=== PATIENT | female | born 1980 | race Caucasian/White ===

== ENCOUNTER → 2018-12-19 | Outpatient (CLI) | payer BC ==
--- NOTE | 2018-12-22 08:03 | MM ---
Reason for exam: screening (asymptomatic). Baseline mammogram. History: Family history of breast cancer in maternal aunt at age 50. Physical Findings: Nurse did not find any significant physical abnormalities on exam. MG Screening Mammo w CAD Bilateral CC and MLO view(s) were taken. The breast tissue is heterogeneously dense. This may lower the sensitivity of mammography. Focal asymmetry of the left upper outer quadrant at middle depth. Ultrasound will be performed. These results were verbally communicated with the patient and result sheet given to the patient on 12/19/18. ASSESSMENT: Incomplete: need additional imaging evaluation, BI-RAD 0 RECOMMENDATION: Ultrasound of the left breast. (upper outer quadrant)
--- NOTE | 2018-12-22 08:08 | USB ---
Reason for exam: additional evaluation requested from abnormal screening. History: Family history of breast cancer in maternal aunt at age 50. Physical Findings: Breast exam preformed at baseline screening. US Breast Workup Limited LT Left limited breast ultrasound including focal area of concern, retroareolar and axilla demonstrates a 0.7 x 0.4 x 0.7cm hypoechoic lesion at 1 o'clock low suspicious however biopsy is recommended, solid nature, a 0.6 x 0.3 x 0.6cm cystic, benign lesion at 2 o'clock, a 0.8 x 0.5 x 0.7cm solid, possible lymph node at 2 o'clock, a 2.1 x 1.2 x 2.2cm hypoechoic, vascular lesion at 3 o'clock suspicious, biopsy is recommended, a 0.4 x 0.3 x 0.3cm lesion too small to characterize at 3 o'clock, possibly solid satellite noted 1.6mm adjacent to index mass and duct ectasia at the posterior nipple. These results were verbally communicated with the patient and result sheet given to the patient on 12/19/18. ASSESSMENT: Suspicious, BI-RAD 4 RECOMMENDATION: Ultrasound core biopsy of the left breast. (x2) Called Dr. Ames with mammographic findings and has scheduled an appointment for the patient for 01/22/19 at 10:[address] Michael. Biopsy scheduled for 12/24/18 at 8:00. PRELIMINARY REPORT CALLED AND FAXED TO DR. MICHAEL ON 12/19/18.
== END ==
LOC: RADMAMWWP 14:03
PROVIDERS: ATTEND Family Medicine
DX: Z12.31 Encounter for screening mammogram for malignant neoplasm of breast (principal); R92.8 Other abnormal and inconclusive findings on diagnostic imaging of breast
CPT/HCPCS: 77067

== ENCOUNTER → 2018-12-24 | Day surgery (SDC) | payer BC ==
[2018-12-24 07:16] VITALS: RESP 16; BMI 27.4
[2018-12-24 09:06] VITALS: BP 128/86; PULSE 80; TEMP 98.3
--- NOTE | 2018-12-24 09:06 | USB ---
EXAMINATION TYPE: US biopsy breast VAD LT, US biopsy breast add'l VAD LT, MG diagnostic mammo LT wo C AD DATE OF EXAM: 12/24/2018 CLINICAL HISTORY: R92.8 PREV ABN MAMMO. TECHNIQUE: Ultrasound guided core biopsy of left breast at 2 sites 3:00 and 1:00. COMPARISON: NONE FINDINGS: The procedure of ultrasound guided core biopsy was explained to the patient. Benefits, alt ernatives, and risks were discussed. An informed consent was then obtained. The patient was placed in supine positioning for imaging and for the procedure. The overlying skin w as prepped and draped in usual sterile fashion. Lidocaine buffered with bicarbonate was used as anes thetic into the skin and subcutaneous tissue up to area of concern in the left breast at 2 sites 3:00 and 1:00. Under ultrasound guidance, a 12-gauge vacuum assisted biopsy gun device was used to obtain 4 core [address]es at 3:00 lesion and 3 cores were obtained at the 1:00. Following this, a biopsy clip was left in the lesion. The patient tolerated the procedure well without any immediate complication. The patient was kept in the radiology department for short stay after the procedure and then discharged home in stable condi tion. IMPRESSION: Successful, uncomplicated ultrasound guided core biopsy of areas of concern in the left b reast, full pathology results to follow.
== END | disposition home or self-care (01) ==
LOC: RADUSWWP 06:56
PROVIDERS: ATTEND Surgery
DX: D24.2 Benign neoplasm of left breast (principal); N60.22 Fibroadenosis of left breast; Z91.09 Other allergy status, other than to drugs and biological substances
CPT/HCPCS: 19084; 77065; 88305

== ENCOUNTER → 2019-06-23 | Outpatient (CLI) | payer BC ==
--- NOTE | 2019-06-23 10:55 | USB ---
Reason for exam: follow-up at short interval from prior study. History: Family history of breast cancer in maternal aunt at age 50. Benign US biopsy breast VAD LT of the left breast, December 24, 2018. Benign US biopsy breast add'l VAD LT of the left breast, December 24, 2018. Physical Findings: Nurse did not find any significant physical abnormalities on exam. US Breast Limited LT Left limited breast ultrasound including focal area of concern, retroareolar and axilla demonstrates a 0.9 x 0.3 x 0.5cm oval, cystic lesion at 2 o'clock, benign, a 2.0 x 0.9 x 2.2cm oval, solid lesion at 3 o'clock, clip seen, prior biopsied mass measured 2.1 x 1.1 x 2.2cm on the prior and a 0.6 x 0.4 x 0.5cm oval, cystic lesion at 3 o'clock, benign. Prior probable lymph node no longer seen. One o'clock former biopsy site not seen. Only upper outer quadrant scanned per radiologist. These results were verbally communicated with the patient and result sheet given to the patient on 06/23/19. ASSESSMENT: Benign, BI-RAD 2 RECOMMENDATION: Return to routine screening mammogram schedule for both breasts. Back on schedule for December 2019.
== END | disposition home or self-care (01) ==
LOC: RADUSWWP 09:24
PROVIDERS: ATTEND Surgery
DX: R92.8 Other abnormal and inconclusive findings on diagnostic imaging of breast (principal)

== ENCOUNTER → 2020-01-26 | Outpatient (CLI) | payer BC ==
--- NOTE | 2020-01-26 11:22 | MM ---
Reason for exam: screening (asymptomatic). Last mammogram was performed 1 year and 1 month ago. History: Family history of breast cancer in maternal aunt at age 50. Benign US biopsy breast VAD LT of the left breast, December 24, 2018. Benign US biopsy breast add'l VAD LT of the left breast, December 24, 2018. Physical Findings: A clinical breast exam by your physician is recommended on an annual basis and results should be correlated with mammographic findings. MG 3D Screening Mammo W/Cad Bilateral CC and MLO view(s) were taken. Prior study comparison: December 24, 2018, left breast MG diagnostic mammo LT wo CAD. December 19, 2018, bilateral MG screening mammo w CAD. The breast tissue is heterogeneously dense. This may lower the sensitivity of mammography. Previous mammotome biopsy in the leftbreast x 2. There is no discrete abnormality. ASSESSMENT: Benign, BI-RAD 2 RECOMMENDATION: Routine screening mammogram of both breasts in 1 year.
== END | disposition home or self-care (01) ==
LOC: RADMAMWWP 07:20
PROVIDERS: ATTEND Family Medicine
DX: Z12.31 Encounter for screening mammogram for malignant neoplasm of breast (principal)
CPT/HCPCS: 77063; 77067

== ENCOUNTER → 2020-12-02 | Outpatient (CLI) | payer OTHER | END | disposition home or self-care (01) | LOC: LABWHC1 15:34 | PROVIDERS: ATTEND Family Medicine | DX: Z20.822 Contact with and (suspected) exposure to COVID-19 (principal) | CPT/HCPCS: U0003; C9803; U0005 ==

== ENCOUNTER → 2021-03-03 | Outpatient (CLI) | payer OTHER, BC ==
--- NOTE | 2021-03-06 10:57 | MM ---
Reason for exam: screening (asymptomatic). Last mammogram was performed 1 year and 1 month ago. History: Family history of breast cancer in maternal aunt at age 50. Benign US biopsy breast VAD LT of the left breast, December 24, 2018. Benign US biopsy breast add'l VAD LT of the left breast, December 24, 2018. Physical Findings: A clinical breast exam by your physician is recommended on an annual basis and results should be correlated with mammographic findings. MG 3D Screening Mammo W/Cad Bilateral CC and MLO view(s) were taken. Prior study comparison: January 26, 2020, bilateral MG 3d screening mammo w/cad. December 24, 2018, left breast MG diagnostic mammo LT wo CAD. The breast tissue is heterogeneously dense. This may lower the sensitivity of mammography. Finding: There is a 16 mm circumscribed oval, distinct from clip mass located 8-9 cm from the nipple in the upper outer quadrant, middle position of the left breast. Previous mammotome biopsy in the left breast x 2. There is a chronic nodularity in the left breast. New finding and increase in size since January 26, 2020 and December 24, 2018. ASSESSMENT: Incomplete: need additional imaging evaluation, BI-RAD 0 RECOMMENDATION: Ultrasound of the left breast. [facility] will attempt to contact patient to return for ultrasound.
== END | disposition home or self-care (01) ==
LOC: RADMAMWWP 08:09
PROVIDERS: ATTEND Family Medicine
DX: Z12.31 Encounter for screening mammogram for malignant neoplasm of breast (principal); Z80.3 Family history of malignant neoplasm of breast
CPT/HCPCS: 77063; 77067

== ENCOUNTER → 2021-03-07 | Outpatient (CLI) | payer OTHER, BC ==
--- NOTE | 2021-03-07 11:44 | USB ---
Reason for exam: additional evaluation requested from abnormal screening. History: Family history of breast cancer in maternal aunt at age 50. Benign US biopsy breast VAD LT of the left breast, December 24, 2018. Benign US biopsy breast add'l VAD LT of the left breast, December 24, 2018. Physical Findings: Nurse did not find any significant physical abnormalities on exam. US Breast Workup Limited LT Left limited breast ultrasound including focal area of concern, retroareolar and axilla demonstrates a 0.6 x 0.4 x 0.8cm oval, hypoechoic lesion at 1 o'clock, stable with prior biopsy clip, a 0.9 x 0.3 x 0.7cm cystic lesion at 2 o'clock, stable, thin walled, benign cysts, a 0.6 x 0.4 x 0.6cm cystic lesion at 2 o'clock, stable, thin walled, benign cysts, a 1.1 x 1.2 x 1.3cm hypoechoic lesion at 2 o'clock, increased in size from 2019, corresponds to mammogram and a 1.8 x 0.9 x 1.8cm hypoechoic lesion at 3 o'clock, benign, biopsied in the past. These results were verbally communicated with the patient and result sheet given to the patient on 03/07/21. ASSESSMENT: Suspicious, BI-RAD 4 RECOMMENDATION: Ultrasound core biopsy of the left breast. Called Dr. Ames's office with mammographic findings and has scheduled an appointment for the patient for 04/20/21 at 11:[address] Michael. Biopsy scheduled for 03/13/21 at 12:00. PRELIMINARY REPORT CALLED AND FAXED TO DR. MICHAEL ON 03/07/21.
== END | disposition home or self-care (01) ==
LOC: RADUSWWP 10:15
PROVIDERS: ATTEND Family Medicine
DX: N60.02 Solitary cyst of left breast (principal); Z80.3 Family history of malignant neoplasm of breast

== ENCOUNTER → 2021-03-13 | Day surgery (SDC) | payer OTHER, BC ==
[2021-03-13 12:14] VITALS: RESP 16
[2021-03-13 13:15] VITALS: BP 148/94; PULSE 90; TEMP 98.5
--- NOTE | 2021-03-13 14:19 | USB ---
EXAMINATION TYPE: US biopsy breast VAD LT DATE OF EXAM: 03/13/2021 CLINICAL HISTORY: R92.8 abnormal mammogram. Request for biopsy 2:00 lesion left breast TECHNIQUE: Ultrasound guided core biopsy of left breast. COMPARISON: NONE FINDINGS: The procedure of ultrasound guided core biopsy was explained to the patient. Benefits, alternatives, and risks were discussed. An informed consent was then obtained. The patient was placed in supine positioning for imaging and for the procedure. The overlying skin was prepped and draped in usual sterile fashion. Lidocaine buffered with bicarbonate was used as anesthetic into the skin and subcutaneous tissue up to area of concern in the left breast. A rosalia was made with surgical scalpel. Under ultrasound guidance, a 12-gauge vacuum assisted biopsy gun device was used to obtain 5 core samples. Following this, a biopsy clip was left in lesion. Postprocedural mammogram demonstrated the clip to be in ideal position. The patient tolerated the procedure well without any immediate complication. The patient was kept in the radiology department for short stay after the procedure and then discharged home in stable condition. IMPRESSION: Successful, uncomplicated ultrasound guided core biopsy of area of concern in the left breast, full pathology results to follow. Pathology Results: Benign LEFT BREAST, 2:00 POSITION, CORE BIOPSY: Benign fibroadenoma (see note). Recommendation Follow up ultrasound of the left breast in 6 months. JOSE
--- NOTE | 2021-03-14 08:21 | MM ---
Reason for exam: additional evaluation requested from abnormal screening. Last mammogram was performed less than 1 month ago. History: Family history of breast cancer in maternal aunt at age 50. Benign US biopsy breast VAD LT of the left breast, December 24, 2018. Benign US biopsy breast add'l VAD LT of the left breast, December 24, 2018. MG Diagnostic Mammo LT Wo CAD CC and LM view(s) were taken of the left breast. Prior study comparison: March 03, 2021, bilateral MG 3d screening mammo w/cad. January 26, 2020, bilateral MG 3d screening mammo w/cad. ASSESSMENT: Post procedure mammogram for marker placement RECOMMENDATION: Ultrasound of the left breast in 6 months. PENDING PATHOLOGY RESULTS.
== END ==
LOC: RADUSWWP 11:51 → EDSTATUS 13:00
PROVIDERS: ATTEND Surgery
DX: D24.2 Benign neoplasm of left breast (principal)
CPT/HCPCS: 88305; 77065; 19083; A4648; J2001

== ENCOUNTER → 2021-09-15 | Outpatient (CLI) | payer BC ==
--- NOTE | 2021-09-15 12:06 | USB ---
Reason for exam: follow-up at short interval from prior study. History: Family history of breast cancer in maternal aunt at age 50. Benign US biopsy breast VAD LT of the left breast, March 13, 2021. Benign US biopsy breast VAD LT of the left breast, December 24, 2018. Benign US biopsy breast add'l VAD LT of the left breast, December 24, 2018. Physical Findings: Nurse did not find any significant physical abnormalities on exam. US Breast Limited LT Left limited breast ultrasound including focal area of concern, retroareolar and axilla demonstrates a 0.4 x 0.4 x 0.3cm oval, cystic lesion at 12 o'clock, a 0.6 x 0.6 x 0.4cm oval, complex, cystic lesion at 1 o'clock, a 1.0 x 0.5 x 0.4cm oval, cystic lesion at 2 o'clock, a 0.7 x 0.5 x 0.3cm oval, cystic lesion at 2 o'clock, a 1.7 x 1.7 x 1.5cm irregular, solid, vascular lesion at 2 o'clock, a 1.5 x 1.6 x 0.8cm irregular, solid, vascular lesion at 3o'clock, ductal ectasia at the posterior nipple and a 1.3 x 1.9 x 0.7cm axillary node. These results were verbally communicated with the patient and result sheet given to the patient on 09/15/21. ASSESSMENT: Probably benign, BI-RAD 3 RECOMMENDATION: Follow-up diagnostic mammogram of both breasts in 6 months. Back on schedule for February 2022.
== END | disposition home or self-care (01) ==
LOC: RADUSWWP 09:42
PROVIDERS: ATTEND Surgery
DX: N60.02 Solitary cyst of left breast (principal); Z80.3 Family history of malignant neoplasm of breast; N60.42 Mammary duct ectasia of left breast

== ENCOUNTER 2021-10-11 13:49 | Emergency (ER) | payer BC ==
--- NOTE | 2021-10-11 14:26 | ED ---
Chest Pain HPI - General Chief Complaint: Chest Pain Stated Complaint: Chest Pain Time Seen by Provider: 10/11/21 14:09 Source: family Mode of arrival: ambulatory Limitations: no limitations - Related Data Home Medications Medication Instructions Recorded Confirmed ALPRAZolam [Xanax] 0.5 mg PO DAILY PRN 10/11/21 10/11/21 Losartan Potassium 100 mg PO DAILY 10/11/21 10/11/21 Multivitamins, Thera [Multivitamin 1 tab PO DAILY 10/11/21 10/11/21 (formulary)] Sertraline [Zoloft] 50 mg PO DAILY 10/11/21 10/11/21 Allergies Allergy/AdvReac Type Severity Reaction Status Date / Time steri strips AdvReac Rash/Hives Uncoded 10/11/21 15:20 Review of Systems ROS Statement: Those systems with pertinent positive or pertinent negative responses have been documented in the HPI. ROS Other: All systems not noted in ROS Statement are negative. EKG Findings - EKG Comments: EKG Findings:: Twelve-lead EKG shows ventricular rate 97 bpm, normal NE interval and QRS complexes, no ST elevation or depression, interpreted by me as normal sinus rhythm. Past Medical History Past Medical History: No Reported History History of Any Multi-Drug Resistant Organisms: None Reported Past Surgical History: Cholecystectomy Additional Past Surgical History / Comment(s): Karen haji Past Anesthesia/Blood Transfusion Reactions: Motion Sickness, Postoperative Nausea & Vomiting (PONV) Past Psychological History: Anxiety Smoking Status: Never smoker Past Alcohol Use History: Occasional Past Drug Use History: None Reported General Exam Limitations: no limitations Course Vital Signs 10/11/21 10/11/21 10/11/21 13:54 15:02 16:27 Temperature 98.7 F 99.1 F Pulse Rate 100 87 Pulse Rate [ 84 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 Her entire workup is completely negative. I can find no evidence of any acute emergency condition. She is stable for discharge. Disposition Clinical Impression: Chest pain Disposition: HOME SELF-CARE Condition: Good Instructions (If sedation given, give patient instructions): Chest Pain (ED) Is patient prescribed a controlled substance at d/c from ED?: No Referrals: Shad Ames DO [Primary Care Provider] - 1-2 days
[2021-10-11 14:53] LABS: Basophils # (A) 0.1 k/uL (0-0.2); Basophils % (A) 1 %; Eosinophils # (A) 0.1 k/uL (0-0.7); Eosinophils % (A) 1 %; HCT 38.9 % (34.0-46.0); HGB 13.7 gm/dL (11.4-16.0); Lymphocytes % (A) 20 %; MCHC 35.2 g/dL (31.0-37.0); MCV 85.4 fL (80.0-100.0); Mean Platelet Volume 7.1; Monocytes # (A) 0.5 k/uL (0-1.0); Monocytes % (A) 5 %; Neutrophils # (A) 7.3 k/uL (1.3-7.7); Neutrophils % (A) 72 %; Platelet Count 471 k/uL (150-450); RBC 4.56 m/uL (3.80-5.40); RDW 12.4 % (11.5-15.5); WBC 10.2 k/uL (3.8-10.6)
[2021-10-11 15:02] LABS: Glucose 114 mg/dL (74-99); Sodium 138 mmol/L (137-145)
[2021-10-11 15:03] LABS: ALT 19 U/L (4-34); AST 21 U/L (14-36); African American GFR (CKD) >90 (>60 ml/min/1.73 sqM); Albumin 4.9 g/dL (3.5-5.0); Alkaline Phosphatase 64 U/L (38-126); Anion Gap 12 mmol/L; Blood Urea Nitrogen 11 mg/dL (7-17); Calcium 10.3 mg/dL (8.4-10.2); Carbon Dioxide 22 mmol/L (22-30); Chloride 104 mmol/L (98-107); Magnesium 1.9 mg/dL (1.6-2.3); Non-African American GFR(CKD) 87 (>60 ml/min/1.73 sqM); Potassium 3.8 mmol/L (3.5-5.1); Total Bilirubin 0.6 mg/dL (0.2-1.3); Total Protein 8.3 g/dL (6.3-8.2)
[2021-10-11 15:09] LABS: Partial Thromboplastin Time 32.3 sec (22.0-30.0); Prothrombin Time 10.4 sec (9.0-12.0)
[2021-10-11 16:28] VITALS: BP 129/84; RESP 18
--- NOTE | 2021-10-11 17:14 | XR ---
EXAMINATION TYPE: XR chest 2V DATE OF EXAM: 10/11/2021 COMPARISON: None INDICATION: Chest pain TECHNIQUE: Single frontal view of the chest is obtained. FINDINGS: The heart size is normal. The pulmonary vasculature is normal. The lungs are clear. IMPRESSION: 1. No acute pulmonary process.
[2021-10-11 18:22] VITALS: PULSE 86; TEMP 97.7
== END 2021-10-11 19:13 | disposition home or self-care (01) ==
LOC: EC 13:49
DX: R07.9 Chest pain, unspecified (principal); F41.9 Anxiety disorder, unspecified; Z72.89 Other problems related to lifestyle
CPT/HCPCS: 36415; 71046; 80053; 83735; 83880; 84484; 85025; 85379; 85610; 85730; 93005; 99285

== ENCOUNTER → 2022-03-05 | Outpatient (CLI) | payer OTHER ==
--- NOTE | 2022-03-05 13:34 | MM ---
Reason for exam: additional evaluation requested from prior study. Last mammogram was performed 1 year ago. History: Family history of breast cancer in maternal aunt at age 50. Benign US biopsy breast VAD LT of the left breast, March 13, 2021. Benign US biopsy breast VAD LT of the left breast, December 24, 2018. Benign US biopsy breast add'l VAD LT of the left breast, December 24, 2018. Physical Findings: A clinical breast exam by your physician is recommended on an annual basis and results should be correlated with mammographic findings. MG 3D Diag Mammo W/Cad REYNALDO Bilateral CC and MLO view(s) were taken. Prior study comparison: September 15, 2021, left breast US breast limited LT. March 03, 2021, bilateral MG 3d screening mammo w/cad. January 26, 2020, bilateral MG 3d screening mammo w/cad. The breast tissue is heterogeneously dense. This may lower the sensitivity of mammography. Previous mammotome biopsy in the left breast. No significant new findings when compared with previous films. Results were given to the patient verbally at the time of the exam. ASSESSMENT: Benign, BI-RAD 2 RECOMMENDATION: Routine screening mammogram of both breasts in 1 year.
== END | disposition home or self-care (01) ==
LOC: RADMAMWWP 12:35
PROVIDERS: ATTEND Surgery
DX: R92.8 Other abnormal and inconclusive findings on diagnostic imaging of breast (principal); Z80.3 Family history of malignant neoplasm of breast
CPT/HCPCS: 77062; 77066

== ENCOUNTER → 2022-10-01 | Outpatient (CLI) | payer OTHER ==
--- NOTE | 2022-10-01 10:43 | US ---
EXAMINATION TYPE: US abdomen complete DATE OF EXAM: 10/01/2022 COMPARISON: NONE CLINICAL HISTORY: R10.13 epigastric pain. Epigastric pain. Hx cholecystectomy 2010. TECHNIQUE: Multiple sonographic images of the abdomen are obtained. FINDINGS: EXAM MEASUREMENTS: Liver Length: 15.4 cm CBD: 0.33 cm Spleen: 9.5 cm Right Kidney: 11.4 x 5.2 x 3.7 cm Left Kidney: 10.8 x 4.7 x 4.7 cm LOFTER NOTES: Limited due to gas and body habitus. Pancreas: Limited due to gas. Liver: Appears coarse in echotexture. Gallbladder: Surgically absent Evidence for sonographic Judge's sign: No CBD: Portions seen appear wnl Spleen: Appears wnl Right Kidney: Prominent renal pelvis. Left Kidney: No hydronephrosis or masses seen Upper IVC: Appears wnl Abd Aorta: Appears ectatic. Iliacs were obscured. Scanned patient's area of pain within the midline epigastric area. Just inferior to the sternum, an terior to the liver there appears to be a tubular complex area. Possible minimal venous flow within. ?Questionable dilated vessel with echoes. Area measures 8.2 x 1.4 x 1.1 cm. IMPRESSION: 1. Complex nonspecific area at the site of clinical concern. Consider further evaluation with CT.
== END | disposition home or self-care (01) ==
LOC: RADUSWWP 09:21
PROVIDERS: ATTEND Family Medicine
DX: R10.13 Epigastric pain (principal)
CPT/HCPCS: 76700

== ENCOUNTER → 2022-10-15 | Outpatient (CLI) | payer OTHER ==
--- NOTE | 2022-10-15 13:02 | CT ---
EXAMINATION TYPE: CT abdomen wo/w con CT DLP: 1285.80 mGycm, Automated exposure control for dose reduction was used. DATE OF EXAM: 10/15/2022 12:45 PM COMPARISON: None. CLINICAL INDICATION:Female, 41 years old with history of R10.13 epigastric pain; epigastric/midline p ain. TECHNIQUE: Axial CT of the abdomen. Sagittal and coronal reformats were created on a separate workst atreplaced by [facility]. Contrast used:70 mL of Isovue 300 without and with IV Contrast, Oral contrast used: without Oral Contrast FINDINGS: LOWER CHEST: Unremarkable ABDOMEN LIVER: Unremarkable GALLBLADDER AND BILE DUCTS: The gallbladder is surgically absent. PANCREAS: Unremarkable. SPLEEN: Unremarkable. ADRENAL GLANDS: Unremarkable. KIDNEYS AND URETERS: No evidence of hydronephrosis. There is a nonobstructing right renal calculus.. The ureters are unremarkable. STOMACH AND BOWEL: No evidence of bowel obstruction. Small hiatal hernia present. PERITONEUM: No evidence of pneumoperitoneum or free fluid. VASCULATURE: No evidence of aortic aneurysm. MUSCULOSKELETAL: No acute osseous abnormalities LYMPH NODES: No gross evidence for lymphadenopathy. SOFT TISSUE/ABDOMINAL WALL: Unremarkable IMPRESSION: 1. No acute intra-abdominal process. 2. Nonobstructing right renal calculus. 3. Small hiatal hernia
== END | disposition home or self-care (01) ==
LOC: RADCTMAIN 11:52
PROVIDERS: ATTEND Family Medicine
DX: N20.0 Calculus of kidney (principal); K44.9 Diaphragmatic hernia without obstruction or gangrene
CPT/HCPCS: 74170; Q9967

== ENCOUNTER → 2024-01-17 | Outpatient (CLI) | payer OTHER ==
--- NOTE | 2024-01-17 11:05 | US ---
EXAMINATION TYPE: US pelvic complete DATE OF EXAM: 01/17/2024 COMPARISON: NONE CLINICAL INDICATION: Female, 43 years old with history of R39.198 OTHER ISSUES WITH MICTURITION; urin e retention TECHNIQUE: Transabdominal (TA EXAM MEASUREMENTS: Uterus: 9.0 x 3.8 x 5.1 cm Endometrial Stripe: 1.1 cm Right Ovary: 2.6 x 2.3 x 1.6 cm 1. Uterus: Retroverted wnl 2. Endometrium: wnl 3. Right Ovary: Surgically absent 4. Left Ovary: Obscured by overlying bowel gas 5. Bilateral Adnexa: wnl 6. Posterior cul-de-sac: wnl IMPRESSION: No discrete abnormality seen.
== END | disposition home or self-care (01) ==
LOC: RADUSWWP 10:04
PROVIDERS: ATTEND Family Medicine
DX: R39.198 Other difficulties with micturition (principal); R33.9 Retention of urine, unspecified; Z90.721 Acquired absence of ovaries, unilateral
CPT/HCPCS: 76856

== ENCOUNTER → 2024-04-25 | Outpatient (CLI) | payer OTHER ==
[2024-04-25 13:05] LABS: Basophils # (A) 0.06 X 10*3/uL (0.00-0.10); Basophils % (A) 0.8 %; Eosinophils # (A) 0.18 X 10*3/uL (0.04-0.35); Eosinophils % (A) 2.4 %; HCT 40.7 % (37.2-46.3); HGB 13.1 g/dL (12.0-15.0); Lymphocytes # (A) 2.32 X 10*3/uL (0.90-5.00); Lymphocytes % (A) 30.5 %; MCH 29.2 pg (27.0-32.0); MCHC 32.2 g/dL (32.0-37.0); MCV 90.6 FL (80.0-97.0); Mean Platelet Volume 10.2 FL (9.5-12.2); Monocytes # (A) 0.57 X 10*3/uL (0.20-1.00); Monocytes % (A) 7.5 %; NRBC Per 100 WBC 0 X 10*3/uL (0.00-0.01); Neutrophils # (A) 4.47 X 10*3/uL (1.80-7.70); Neutrophils % (A) 58.7 %; Platelet Count 456 X 10*3/uL (140-440); RBC 4.49 X 10*6/uL (4.10-5.20); RDW 12.9 % (11.5-14.5); WBC 7.61 X 10*3/uL (4.50-10.00)
[2024-04-25 13:36] LABS: ALT 17 U/L (8-44); AST 16 U/L (13-35); Albumin 4.3 g/dL (3.8-4.9); Albumin/Globulin Ratio 1.59 Ratio (1.60-3.17); Alkaline Phosphatase 82 U/L (41-126); BUN/Creat Ratio 11.44 Ratio (12.00-20.00); Blood Urea Nitrogen 10.3 mg/dL (9.0-27.0); Calcium 9.4 mg/dL (8.7-10.3); Carbon Dioxide 24.3 mmol/L (21.6-31.8); Chloride 104 mmol/L (96-109); Chol/HDL Ratio 4.32 Ratio; Estradiol 24.9 pg/mL; Globulin 2.7 g/dL (1.6-3.3); Glucose 112 mg/dL (70-110); Iron 47 UG/DL (50-170); LDL Cholesterol,Calculated 113.9 mg/dL (0.0-131.0); Potassium 4.5 mmol/L (3.5-5.5); Sodium 139 mmol/L (135-145); T4, Free (Free Thyroxine) 0.97 ng/dL (0.80-1.80); Total Bilirubin <0.2 mg/dL (0.3-1.2)
[2024-04-25 16:37] LABS: Follicle Stimulating Hormone 6.7 mIU/mL; Luteinizing Hormone 10.4 mIU/mL
== END | disposition home or self-care (01) ==
LOC: LABWHC1 08:07
PROVIDERS: ATTEND Family Medicine
DX: Z00.00 Encounter for general adult medical examination without abnormal findings (principal); I10 Essential (primary) hypertension; E66.9 Obesity, unspecified; R53.83 Other fatigue
CPT/HCPCS: 36415; 80053; 80061; 82306; 82607; 82670; 83001; 83002; 83036; 83540; 84403; 84439; 84443; 84480; 84481; 85025

== ENCOUNTER → 2024-05-06 | Outpatient (CLI) | payer OTHER ==
--- NOTE | 2024-05-07 08:28 | MM ---
Reason for Exam: Screening (asymptomatic). Last mammogram was performed 1 year(s) and 1 month(s) ago. Patient History: Menarche at age 10. First Full-Term at age 21. Premenopausal. 03/13/2021, Benign Core Biopsy on the left side. 12/24/2018, Benign Core Biopsy on the left side. 12/24/2018, Benign Core Biopsy on the left side. Maternal aunt had breast cancer, age 50. Last menstrual period: 04/29/2024 Risk Values: Jewels 5 year model risk: 2.0%. NCI Lifetime model risk: 14.9%. Prior Study Comparison: 03/13/2021 Left Diagnostic Mammogram, [facility]. 03/05/2022 Bilateral Diagnostic Mammogram, [facility]. 03/15/2023 Bilateral MG 3D screening mammo w/cad, [facility]. Tissue Density: The breasts are heterogeneously dense, which may obscure small masses. Findings: Analyzed By CAD. There is no suspicious group of microcalcifications or new suspicious mass in either breast. Overall Assessment: Benign, BI-RAD 2 Management: Screening Mammogram of both breasts in 1 year. . Patient should continue monthly self-breast exams. A clinical breast exam by your physician is recommended on an annual basis. This exam should not preclude additional follow-up of suspicious palpable abnormalities. Note on Jewels scores and lifetime risk: 1. A Jewels score greater than 3% is considered moderate risk. If this is the case, consider specialist referral to assess eligibility for a risk reducing agent. 2. If overall lifetime risk for the development of breast cancer is 20% or higher, the patient may qualify for future screening with alternating mammogram and breast MRI. Electronically signed and approved by: Greyson Augustine M.D. Radiologis
== END | disposition home or self-care (01) ==
LOC: RADMAMWWP 07:05
PROVIDERS: ATTEND Family Medicine
DX: Z12.31 Encounter for screening mammogram for malignant neoplasm of breast (principal); Z80.3 Family history of malignant neoplasm of breast
CPT/HCPCS: 77063; 77067

== ENCOUNTER 2024-08-04 11:17 | Day surgery (SDC) | payer OTHER ==
[2024-08-03 10:26] VITALS: BMI 31.6
[2024-08-04 12:57] VITALS: TEMP 97.6
[2024-08-04] MEDS: IV FLUID CONTINUATION 1,000 ML IV ONE (13:00)
[2024-08-04] MEDS: LACTATED RINGERS 1,000 ML IV SCH (13:01)
[2024-08-04] MEDS ORDERED: PROPOFOL 10 MG/ML 20 ML VIAL IV ONE (13:14)
[2024-08-04] MEDS ORDERED: LIDOCAINE 2% (PF) 20 MG/ML 5 ML VIAL ONE (13:14)
--- NOTE | 2024-08-04 13:26 | P.PCN ---
Date of Procedure: 08/04/24 Procedure(s) Performed: BRIEF HISTORY: Patient is a 43-year-old, pleasant, white female scheduled an upper endoscopy as a part evaluation of lungs and history of GERD for the last few years duration. Recently her symptoms have been progressively getting worse and hence the medications were changed to Protonix 40 mg daily.. PROCEDURE PERFORMED: Esophagogastroduodenoscopy with biopsy PREOPERATIVE DIAGNOSIS: Longstanding history of GERD. IV sedation per anesthesia. PROCEDURE: After informed consent was obtained, the patient was brought into the endoscopy unit. IV sedation was administered by Anesthesia under continuous monitoring. Initially the Olympus GIF-140 video endoscope was inserted into the mouth. Esophagus intubated without any difficulty. It was gradually advanced into the stomach and duodenum and carefully examined. The bulb and the second part of the duodenum appeared normal. The scope at this time was withdrawn to the stomach, adequately insufflated with air, and upon careful examination, mucosa of the antrum had patchy areas of erythema consistent with gastritis and biopsies were done from this area. Mucosa of the, body, cardia and the fundus appeared normal. The scope was then withdrawn into the esophagus. Small sliding-type hiatal hernia noted. The GE junction was located at 39 cm from the incisors. There were 2 superficial erosions at the GE junction consistent with LA grade B reflux esophagitis. Rest of the esophagus appeared normal and the patient tolerated the procedure well. IMPRESSION: 1. 2 superficial erosions at the GE junction consistent with LA grade B reflux esophagitis. 2. Mild antral gastritis 3. Small sliding-type hiatal hernia. RECOMMENDATIONS: The findings of this examination were discussed with the patient as well as her family. She was advised to follow-up with the biopsy results. In the meantime continue with the Protonix 40 mg daily and follow antireflux measures up in the office in 3 to 4 weeks.
[2024-08-04 14:20] VITALS: BP 127/71; PULSE 91; RESP 16
== END 2024-08-04 14:21 | disposition home or self-care (01) ==
LOC: ORWHC2ENDO 11:17
PROVIDERS: ATTEND Internal Medicine Gastroenterology
CPT/HCPCS: 43239; 81025; 88305

== ENCOUNTER → 2025-01-15 | Outpatient (CLI) | payer OTHER ==
--- NOTE | 2025-01-15 18:10 | CA ---
Transthoracic Echo Report Name: Mallory Rivera Age: 44 Gender: F : 1980 Exam Date: 01/15/2025 11:58 Exam Location: [facility] Ht (in): 65 Wt (lb): 190 Ordering Physician: Shad Ames DO Attending/Referring Phys: Jhoana Batista [facility] Manager Primary Care Zeinab Bird RDCS Procedure CPT: Indications: I87.8 OTHER SPECIFIED DISORDERS OF VEINS Cardiac Hx: Technical Quality: Fair Contrast 1: Total Dose (mL): Contrast 2: Total Dose (mL): MEASUREMENTS (Male / Female) Normal Values 2D ECHO LV Diastolic Diameter PLAX 3.5 cm 4.2 - 5.9 / 3.9 - 5.3 cm LV Systolic Diameter PLAX 2.1 cm IVS Diastolic Thickness 1.3 cm 0.6 - 1.0 / 0.6 - 0.9 cm LVPW Diastolic Thickness 1.2 cm 0.6 - 1.0 / 0.6 - 0.9 cm LV Relative Wall Thickness 0.7 RV Internal Dim ED PLAX 2.6 cm LA Systolic Diameter LX 3.2 cm 3.0 - 4.0 / 2.7 - 3.8 cm LV Diastolic Volume MOD BP 38.6 cm??? 67 - 155 / 56 - 104 cm??? LV Systolic Volume MOD BP 14.1 cm??? 22 - 58 / 19 - 49 cm??? LV Ejection Fraction MOD BP 63.5 % >= 55 % LV Cardiac Index MOD BP 1249.6 cm???/min???m??? LV Diastolic Volume MOD 4C 44.1 cm??? LV Systolic Volume MOD 4C 10.2 cm??? LV Ejection Fraction MOD 4C 76.9 % LV Cardiac Index MOD 4C 1733.2 cm???/min???m??? LV Diastolic Length 4C 6.7 cm LV Systolic Length 4C 5.0 cm LV Diastolic Volume MOD 2C 26.6 cm??? LV Systolic Volume MOD 2C 17.7 cm??? LV Ejection Fraction MOD 2C 33.4 % LV Cardiac Index MOD 2C 454.3 cm???/min???m??? LV Diastolic Length 2C 5.3 cm LV Systolic Length 2C 5.5 cm M-MODE Aortic Root Diameter MM 3.0 cm LA Systolic Diameter MM 2.8 cm LA Ao Ratio MM 0.9 AV Cusp Separation MM 2.0 cm DOPPLER Mitral E Point Velocity 71.0 cm/s Mitral A Point Velocity 83.2 cm/s Mitral E to A Ratio 0.9 MV Deceleration Time 203.3 ms MV E' Velocity 5.6 cm/s Mitral E to MV E' Ratio 12.7 TR Peak Velocity 162.6 cm/s TR Peak Gradient 10.6 mmHg FINDINGS Left Ventricle Left ventricular ejection fraction is estimated at 55-60%. Mildly increased septal wall thickness. Mildly increased posterior wall thickness. Normal left ventricular systolic function with no obvious regional wall motion abnormalities. Right Ventricle Mild right ventricular dilatation. Right ventricular systolic pressure within normal limits. Right Atrium Normal right atrial size. Left Atrium Normal left atrial size. Mitral Valve Structurally normal mitral valve. Trace to mild mitral regurgitation. No mitral stenosis. Aortic Valve Trileaflet aortic valve. No aortic valve stenosis or regurgitation. Tricuspid Valve Structurally normal tricuspid valve. No tricuspid stenosis. Trace tricuspid regurgitation. Pulmonic Valve Structurally normal pulmonic valve. Trace pulmonic regurgitation. No pulmonic stenosis. Pericardium No pericardial or pleural effusion. Aorta Normal size aortic root and proximal ascending aorta. CONCLUSIONS Diagnosis: Hypertensive heart disease, lower extremity edema LVH with preserved systolic function Mild RV enlargement Prominent posterior pericardial stripe Previewed by: Dr. Erich Matias MD (Electronically Signed) Final Date: 15 January 2025 18:09
== END | disposition home or self-care (01) ==
LOC: RADECHMAIN 11:40
PROVIDERS: ATTEND Family Medicine
DX: I87.8 Other specified disorders of veins (principal); R60.0 Localized edema; I11.9 Hypertensive heart disease without heart failure; I37.1 Nonrheumatic pulmonary valve insufficiency; I07.1 Rheumatic tricuspid insufficiency
CPT/HCPCS: 93306

== ENCOUNTER → 2025-01-15 | Outpatient (CLI) | payer OTHER ==
--- NOTE | 2025-01-15 10:52 | MM ---
Reason for Exam: Clinical finding. Last screening mammogram was performed 9 month(s) ago. Indicated Problems: Lump or thickening of the left side for 2 Month(s). Patient History: Menarche at age 10. First Full-Term at age 21. Premenopausal. Patient used Hormonal Contraceptives for 5 years. 03/13/2021, Benign Core Biopsy on the left side. 12/24/2018, Benign Core Biopsy on the left side. 12/24/2018, Benign Core Biopsy on the left side. Maternal aunt had breast cancer, age 50. Last menstrual period: 01/13/2025 Risk Values: Jewels 5 year model risk: 2.1%. NCI Lifetime model risk: 14.6%. Prior Study Comparison: 03/05/2022 Bilateral Diagnostic Mammogram, [facility]. 03/15/2023 Bilateral MG 3D screening mammo w/cad, [facility]. 05/06/2024 Bilateral MG 3D screening mammo w/cad, [facility]. Tissue Density: Left: The breasts are heterogeneously dense, which may obscure small masses. Findings: Analyzed By CAD. Redemonstrated two biopsy-proven fibroadenomas measuring up to 1.9 cm in the upper outer quadrant painful lump. The smaller mass shows some unchanged dystrophic calcifications. Total of 3 microplates are present in the left breast. Areas of asymmetric density are unchanged. No significant change from prior exams. Overall Assessment: Incomplete: need additional imaging evaluation, BI-RAD 0 Management: Diagnostic Breast Ultrasound of the left breast. [facility], , 01/15/2025 10:48 AM. Electronically signed and approved by: Chadwick Barragan M.D. Radiologist
--- NOTE | 2025-01-15 11:31 | USB ---
Reason for Exam: Clinical finding. Patient History: Menarche at age 10. First Full-Term at age 21. Premenopausal. Patient used Hormonal Contraceptives for 5 years. 03/13/2021, Benign Core Biopsy on the left side. 12/24/2018, Benign Core Biopsy on the left side. 12/24/2018, Benign Core Biopsy on the left side. Maternal aunt had breast cancer, age 50. Risk Values: Jewels 5 year model risk: 2.1%. NCI Lifetime model risk: 14.6%. Technique: Method: Targeted. Prior Study Comparison: 03/05/2022 Bilateral Diagnostic Mammogram, [facility]. 03/15/2023 Bilateral MG 3D screening mammo w/cad, [facility]. 05/06/2024 Bilateral MG 3D screening mammo w/cad, [facility]. Findings: The area of palpable concern of the left breast, the axilla of the left breast and the retroareolar of the left breast were scanned. Targeted ultrasound left breast 2:00 to 4:00 including scanning of the subareolar region and axilla. At the patient's palpable lump at 2:00, 9 cm from the nipple, there is a lobulated, biopsy-proven fibroadenoma/mass currently measuring 1.9 x 1.8 x 1.7 cm. In 2020, this measured 1.7 cm. At the 3:00 position, 9 cm from the nipple, there is a lobulated second biopsy-proven fibroadenoma currently estimated at 1.7 x 1.1 x 0.8 cm. This is in comparison to 1.6 cm, previously. No other solid or cystic lesion or axillary adenopathy. Overall Assessment: Benign, BI-RAD 2 Management: Surgical Consultation of the left breast. Screening Mammogram of both breasts in 3 months. 1. Painful 2:00 lump corresponds to known, biopsy-proven fibroadenoma. This shows slight increase in size now measuring 1.9 cm. A second adjacent biopsy-proven fibroadenoma is stable to minimally larger at 1.7 cm located at 3:00. Consider surgical evaluation for possible excision. 2. Patient should continue monthly self breast exams. Results were given to the patient verbally at the time of exam. [facility], Workstation: [id number], 01/15/2025 11:28 AM. Electronically signed and approved by: Chadwick Barragan M.D. Radiologist
== END | disposition home or self-care (01) ==
LOC: RADMAMWWP 10:23
PROVIDERS: ATTEND Family Medicine
DX: N63.20 Unspecified lump in the left breast, unspecified quadrant (principal); Z80.3 Family history of malignant neoplasm of breast; Z92.0 Personal history of contraception
CPT/HCPCS: 77061; 77065